=== PATIENT | male | born 1985 | race Caucasian/White ===

== ENCOUNTER 2022-08-01 16:16 | Emergency (ER) | payer OTHER ==
[~2022-08-01] VITALS: Wt 72.6 kg
[2022-08-01] MEDS ORDERED: TOBRAMYCIN 5 ML5 M1 OPH (22:12)
== END 2022-08-01 22:28 | disposition home or self-care (01) ==
LOC: ED 16:16
DX: S05.02XA Injury of conjunctiva and corneal abrasion without foreign body, left eye, initial encounter (principal); W22.8XXA Striking against or struck by other objects, initial encounter; Y93.89 Activity, other specified; Y92.89 Other specified places as the place of occurrence of the external cause; Y99.8 Other external cause status